=== PATIENT | male | born 1960 | race African-American/Black ===

== ENCOUNTER 2023-03-17 17:12 | Inpatient (IN) | payer OTHER ==
[2023-03-17 18:42] VITALS: BMI 34.8
[2023-03-17] MEDS ORDERED: NALOXONE HCL (KLOXXADO) 8 MG SPRAY NS PRN (20:16)
[2023-03-17] MEDS ORDERED: MAGNESIUM HYDROX 2400MG/30ML ORAL SUSPENSION 30 ML CUP PO PRN (20:16)
[2023-03-17] MEDS ORDERED: MAG HYDROX/AL HYDROX/SIMETH 30 ML UNIT-DOSE CUP PO PRN (20:16)
[2023-03-17] MEDS ORDERED: BISMUTH SUBSALICYLATE 524 MG/30 ML PO PRN (20:16)
[2023-03-17] MEDS ORDERED: ONDANSETRON *ODT* 4 MG TABLET SL PRN (20:16)
[2023-03-17] MEDS ORDERED: guaiFENesin 600 MG TABLET.ER (FP) PO PRN (20:16)
[2023-03-17] MEDS ORDERED: chlordiazePOXIDE HCL 25 MG CAPSULE PO PRN ×2 (20:16→21:44)
[2023-03-17] MEDS ORDERED: BENZONATATE 200 MG CAPSULE PO PRN (20:16)
[2023-03-17] MEDS ORDERED: IBUPROFEN 400 MG TABLET (FP) PO PRN (20:16)
[2023-03-17] MEDS ORDERED: DICYCLOMINE HCL 10 MG CAPSULE PO PRN (20:16)
[2023-03-17] MEDS ORDERED: LOPERAMIDE HCL 2 MG CAPSULE PO PRN (20:16)
[2023-03-17] MEDS ORDERED: BENZOCAINE/MENTHOL (CHLORASEPTIC ) LOZENGE MM PRN (20:16)
[2023-03-17] MEDS ORDERED: NALOXONE HCL 0.4 MG/ML VIAL IM PRN (20:16)
[2023-03-17] MEDS ORDERED: POLYETHYLENE GLYCOL (HEALTHYLAX) 3350 17 GM PACKET PO PRN (20:16)
[2023-03-17] MEDS: THIAMINE HCL 100 MG TABLET (FP) PO SCH (22:56)
[2023-03-17] MEDS: IBUPROFEN 600 MG TABLET (FP) PO PRN (22:56)
[2023-03-17] MEDS: METHOCARBAMOL 500 MG TABLET PO PRN (22:56)
[2023-03-17] MEDS: chlordiazePOXIDE HCL 25 MG CAPSULE PO SCH ×2 (22:57→23:46)
[2023-03-17] MEDS: MELATONIN 5 MG TABLETS PO SCH (23:00)
[2023-03-18] MEDS: chlordiazePOXIDE HCL 25 MG CAPSULE PO SCH ×4 (06:00→23:32)
[2023-03-18] MEDS: IBUPROFEN 600 MG TABLET (FP) PO PRN ×2 (06:46→17:46)
[2023-03-18 10:31] LABS: HEMATOCRIT 36.8 % (35.4-49); HEMOGLOBIN 11.8 GM/dL (11.7-16.9); MCH 28.6 pg (25.7-33.7); MEAN CELL VOLUME 89.2 fl (80-96); MEAN PLT VOLUME 8.9 fl (7.5-11.1); PLATELET COUNT 277 10^3/uL (134-434); RBC 4.12 M/mm3 (4.00-5.60); RDW 13.8 % (11.9-15.9); WHITE BLOOD COUNT 6.2 K/mm3 (4.0-10.0)
[2023-03-18] MEDS: METHOCARBAMOL 500 MG TABLET PO PRN ×2 (10:38→17:51)
[2023-03-18] MEDS: PRENATAL VITAMINS W/ FOLIC ACID TABLET (FP) PO SCH (10:38)
[2023-03-18 11:14] LABS: POTASSIUM 3.9 mmol/L (3.5-5.1)
[2023-03-18 11:16] LABS: CALCIUM 8.2 mg/dL (8.5-10.1)
[2023-03-18 11:17] LABS: ALBUMIN 2.6 g/dl (3.4-5.0); BLOOD UREA NITROGEN 13.3 mg/dL (7-18)
[2023-03-18 11:20] LABS: CREATININE 1.1 mg/dL (0.55-1.3)
[2023-03-18 11:22] LABS: BILIRUBIN,TOTAL 0.5 mg/dL (0.2-1); TOT PROT 6.7 g/dl (6.4-8.2)
[2023-03-18] MEDS: BACITRACIN 0.9 GM PACKET TP SCH (23:30)
[2023-03-18] MEDS: MELATONIN 5 MG TABLETS PO SCH (23:30)
[2023-03-18] MEDS: THIAMINE HCL 100 MG TABLET (FP) PO SCH (23:30)
[2023-03-19] MEDS ORDERED: chlordiazePOXIDE HCL 25 MG CAPSULE PO SCH (05:00)
[2023-03-19] MEDS: chlordiazePOXIDE HCL 25 MG CAPSULE PO SCH ×4 (05:47→22:42)
[2023-03-19] MEDS: METHOCARBAMOL 500 MG TABLET PO PRN ×2 (09:42→20:26)
[2023-03-19] MEDS: BACITRACIN 0.9 GM PACKET TP SCH ×2 (09:42→22:42)
[2023-03-19] MEDS: IBUPROFEN 600 MG TABLET (FP) PO PRN ×2 (09:42→17:23)
[2023-03-19] MEDS: PRENATAL VITAMINS W/ FOLIC ACID TABLET (FP) PO SCH (09:42)
[2023-03-19] MEDS: HYDROCHLOROTHIAZIDE 12.5 MG CAPSULE (FP) PO SCH (12:10)
[2023-03-19] MEDS: ACETAMINOPHEN 325 MG TABLET (FP) PO PRN (20:26)
[2023-03-19] MEDS: THIAMINE HCL 100 MG TABLET (FP) PO SCH (22:42)
[2023-03-19] MEDS: MELATONIN 5 MG TABLETS PO SCH (22:42)
[2023-03-20] MEDS ORDERED: chlordiazePOXIDE HCL 10 MG CAPSULE PO PRN ×2
[2023-03-20] MEDS ORDERED: chlordiazePOXIDE HCL 10 MG CAPSULE PO SCH (05:00)
[2023-03-20] MEDS: chlordiazePOXIDE HCL 10 MG CAPSULE PO SCH ×4 (05:57→22:39)
[2023-03-20] MEDS: IBUPROFEN 600 MG TABLET (FP) PO PRN ×3 (06:04→22:41)
[2023-03-20] MEDS: BACITRACIN 0.9 GM PACKET TP SCH ×3 (10:07→22:48)
[2023-03-20] MEDS: HYDROCHLOROTHIAZIDE 12.5 MG CAPSULE (FP) PO SCH (10:08)
[2023-03-20] MEDS: PRENATAL VITAMINS W/ FOLIC ACID TABLET (FP) PO SCH (10:08)
[2023-03-20] MEDS: METHOCARBAMOL 500 MG TABLET PO PRN ×3 (10:10→22:40)
[2023-03-20] MEDS: hydrOXYzine PAMOATE 25 MG CAPSULE (FP) PO PRN (16:24)
[2023-03-20] MEDS: THIAMINE HCL 100 MG TABLET (FP) PO SCH (22:39)
[2023-03-20] MEDS: MELATONIN 5 MG TABLETS PO SCH (22:39)
[2023-03-21] MEDS ORDERED: chlordiazePOXIDE HCL 10 MG CAPSULE PO SCH ×2 (05:00)
[2023-03-21] MEDS: IBUPROFEN 600 MG TABLET (FP) PO PRN ×2 (06:07→13:55)
[2023-03-21] MEDS: METHOCARBAMOL 500 MG TABLET PO PRN (07:18)
[2023-03-21 09:17] VITALS: RESP 18; TEMP 97.3
[2023-03-21] MEDS: hydrOXYzine PAMOATE 25 MG CAPSULE (FP) PO PRN (09:41)
[2023-03-21] MEDS: BACITRACIN 0.9 GM PACKET TP SCH (09:41)
[2023-03-21] MEDS: PRENATAL VITAMINS W/ FOLIC ACID TABLET (FP) PO SCH (09:41)
[2023-03-21] MEDS: ACETAMINOPHEN 325 MG TABLET (FP) PO PRN (09:41)
[2023-03-21] MEDS ORDERED: HYDROCHLOROTHIAZIDE 25 MG TABLET (FP) PO SCH (10:00)
[2023-03-21 13:15] VITALS: BP 148/88; PULSE 78
[2023-03-22] MEDS ORDERED: chlordiazePOXIDE HCL 10 MG CAPSULE PO ONE ×2 (05:00)
== END 2023-03-21 14:05 | disposition home or self-care (01) | DRG 774 ==
LOC: YASAS 17:12 → Y6N 21:09
PROVIDERS: ADMIT Allergy & Immunology; ATTEND Surgery
PROC: HZ2ZZZZ Detoxification Services for Substance Abuse Treatment (ICD-10-PCS; principal; 2023-03-17)
DX: F10.230 Alcohol dependence with withdrawal, uncomplicated (principal); F14.20 Cocaine dependence, uncomplicated; F12.20 Cannabis dependence, uncomplicated; F17.210 Nicotine dependence, cigarettes, uncomplicated; I10 Essential (primary) hypertension; M19.90 Unspecified osteoarthritis, unspecified site; E66.9 Obesity, unspecified; Z68.31 Body mass index [BMI] 31.0-31.9, adult; Z99.89 Dependence on other enabling machines and devices
CPT/HCPCS: 36415; 80053; 85027; 86780; 87635

== ENCOUNTER 2023-04-23 16:14 | Inpatient (IN) | payer OTHER ==
[2023-04-23 18:33] VITALS: RESP 18; BMI 46.7
[2023-04-23] MEDS ORDERED: BENZONATATE 200 MG CAPSULE PO PRN (18:55)
[2023-04-23] MEDS ORDERED: LOPERAMIDE HCL 2 MG CAPSULE PO PRN (18:55)
[2023-04-23] MEDS ORDERED: guaiFENesin 600 MG TABLET.ER (FP) PO PRN (18:55)
[2023-04-23] MEDS ORDERED: POLYETHYLENE GLYCOL (HEALTHYLAX) 3350 17 GM PACKET PO PRN (18:55)
[2023-04-23] MEDS ORDERED: MAG HYDROX/AL HYDROX/SIMETH 30 ML UNIT-DOSE CUP PO PRN (18:55)
[2023-04-23] MEDS ORDERED: NICOTINE POLACRILEX 2 MG GUM BUC PRN (18:55)
[2023-04-23] MEDS ORDERED: COLLOIDAL OATMEAL 1 BAR EACH TP PRN (18:55)
[2023-04-23] MEDS ORDERED: MAGNESIUM HYDROX 2400MG/30ML ORAL SUSPENSION 30 ML CUP PO PRN (18:55)
[2023-04-23] MEDS ORDERED: BENZOCAINE/MENTHOL (CHLORASEPTIC ) LOZENGE MM PRN (18:55)
[2023-04-23] MEDS: THIAMINE HCL 100 MG TABLET (FP) PO SCH (23:18)
[2023-04-23] MEDS: MELATONIN 5 MG TABLETS PO SCH (23:18)
[2023-04-23] MEDS: ACETAMINOPHEN 325 MG TABLET (FP) PO PRN (23:22)
[2023-04-24] MEDS: ACETAMINOPHEN 325 MG TABLET (FP) PO PRN ×2 (07:07→11:35)
[2023-04-24] MEDS ORDERED: TUBERCULIN PPD 5 TU/0.1ML VIAL ID ONE (08:09)
[2023-04-24] MEDS ORDERED: FUROSEMIDE 40 MG TABLET (FP) PO SCH (10:00)
[2023-04-24] MEDS ORDERED: PRENATAL VITAMINS W/ FOLIC ACID TABLET (FP) PO SCH (10:00)
[2023-04-24] MEDS ORDERED: LOSARTAN POTASSIUM 25 MG TABLET PO SCH (10:00)
[2023-04-24] MEDS: INSULIN SLIDING SCALE (NOVOLOG) 1 VIAL SQ SCH (17:41)
[2023-04-24] MEDS ORDERED: BACITRACIN ZINC 15 GM TUBE TOPICAL OINTMENT TP SCH (22:00)
[2023-04-24] MEDS: MELATONIN 5 MG TABLETS PO SCH (22:22)
[2023-04-24] MEDS: IBUPROFEN 600 MG TABLET (FP) PO PRN (22:22)
[2023-04-24] MEDS: THIAMINE HCL 100 MG TABLET (FP) PO SCH (22:23)
[2023-04-25] MEDS: INSULIN SLIDING SCALE (NOVOLOG) 1 VIAL SQ SCH (07:25)
[2023-04-25] MEDS: IBUPROFEN 600 MG TABLET (FP) PO PRN (07:32)
[2023-04-25 07:41] VITALS: TEMP 97.1
[2023-04-25 09:04] VITALS: BP 118/80; PULSE 68
== END 2023-04-25 08:47 | disposition left against medical advice (07) | DRG 772 ==
LOC: YASAS 16:14 → Y3E 22:43
PROVIDERS: ADMIT Allergy & Immunology; ATTEND Psychiatry & Neurology Pain Medicine
PROC: HZ42ZZZ Group Counseling for Substance Abuse Treatment, Cognitive-Behavioral (ICD-10-PCS; principal; 2023-04-23)
DX: F10.20 Alcohol dependence, uncomplicated (principal); F14.20 Cocaine dependence, uncomplicated; F12.20 Cannabis dependence, uncomplicated; F17.210 Nicotine dependence, cigarettes, uncomplicated; I10 Essential (primary) hypertension; I48.91 Unspecified atrial fibrillation; E11.9 Type 2 diabetes mellitus without complications; L97.921 Non-pressure chronic ulcer of unspecified part of left lower leg limited to breakdown of skin; L97.911 Non-pressure chronic ulcer of unspecified part of right lower leg limited to breakdown of skin; E66.01 Morbid (severe) obesity due to excess calories; Z68.42 Body mass index [BMI] 45.0-49.9, adult; Z99.89 Dependence on other enabling machines and devices; Z28.310 Unvaccinated for COVID-19; Z28.9 Immunization not carried out for unspecified reason; F91.8 Other conduct disorders; Z91.199 Patient's noncompliance with other medical treatment and regimen due to unspecified reason
CPT/HCPCS: 36415; 71045-TC-FY; 80048; 80053; 80061; 80307; 82550; 82553; 82962; 83036; 83735; 84100; 84132; 84439; 84443; 84484; 85025; 85027; 85610; 85730; 87070; 87077; 87186; 87205; 87635; 93005; 93010; 93306-TC; 93971-TC; 97116-GP; 97162-GP; G0378

== ENCOUNTER 2023-06-10 10:59 | Inpatient (IN) | payer OTHER ==
[2023-06-10 11:46] VITALS: BMI 31.4
[2023-06-10] MEDS ORDERED: IBUPROFEN 400 MG TABLET (FP) PO PRN (15:10)
[2023-06-10] MEDS ORDERED: MAGNESIUM HYDROX 2400MG/30ML ORAL SUSPENSION 30 ML CUP PO PRN (15:10)
[2023-06-10] MEDS ORDERED: MAG HYDROX/AL HYDROX/SIMETH 30 ML UNIT-DOSE CUP PO PRN (15:10)
[2023-06-10] MEDS ORDERED: NALOXONE HCL 0.4 MG/ML VIAL IM PRN (15:10)
[2023-06-10] MEDS ORDERED: guaiFENesin 600 MG TABLET.ER (FP) PO PRN (15:10)
[2023-06-10] MEDS ORDERED: BENZOCAINE/MENTHOL (CHLORASEPTIC ) LOZENGE MM PRN (15:10)
[2023-06-10] MEDS ORDERED: BISMUTH SUBSALICYLATE 524 MG/30 ML PO PRN (15:10)
[2023-06-10] MEDS ORDERED: DICYCLOMINE HCL 10 MG CAPSULE PO PRN (15:10)
[2023-06-10] MEDS ORDERED: POLYETHYLENE GLYCOL (HEALTHYLAX) 3350 17 GM PACKET PO PRN (15:10)
[2023-06-10] MEDS ORDERED: ONDANSETRON *ODT* 4 MG TABLET SL PRN (15:10)
[2023-06-10] MEDS ORDERED: NALOXONE HCL (KLOXXADO) 8 MG SPRAY NS PRN (15:10)
[2023-06-10] MEDS ORDERED: BENZONATATE 200 MG CAPSULE PO PRN (15:10)
[2023-06-10] MEDS ORDERED: LOPERAMIDE HCL 2 MG CAPSULE PO PRN (15:10)
[2023-06-10] MEDS ORDERED: chlordiazePOXIDE HCL 25 MG CAPSULE PO PRN (15:10)
[2023-06-10] MEDS ORDERED: IBUPROFEN 600 MG TABLET (FP) PO PRN (16:36)
[2023-06-10] MEDS ORDERED: chlordiazePOXIDE HCL 25 MG CAPSULE ONE (16:45)
[2023-06-10] MEDS ORDERED: IBUPROFEN 600 MG TABLET (FP) PO ONE (16:46)
[2023-06-10] MEDS: chlordiazePOXIDE HCL 25 MG CAPSULE PO SCH ×2 (16:47→22:54)
[2023-06-10] MEDS: IBUPROFEN 600 MG TABLET (FP) PO PRN (16:47)
[2023-06-10] MEDS: MELATONIN 5 MG TABLETS PO SCH (22:53)
[2023-06-10] MEDS: THIAMINE HCL 100 MG TABLET (FP) PO SCH (22:55)
[2023-06-10] MEDS: METHOCARBAMOL 500 MG TABLET PO PRN (22:57)
[2023-06-10] MEDS: TOLNAFTATE 1% CREAM 15 GM TUBE TP SCH (22:59)
[2023-06-11] MEDS: chlordiazePOXIDE HCL 25 MG CAPSULE PO SCH ×4 (05:40→22:56)
[2023-06-11] MEDS: PRENATAL VITAMINS W/ FOLIC ACID TABLET (FP) PO SCH (10:25)
[2023-06-11] MEDS: LOSARTAN POTASSIUM 25 MG TABLET PO SCH (10:25)
[2023-06-11] MEDS: TOLNAFTATE 1% CREAM 15 GM TUBE TP SCH ×2 (10:26→22:57)
[2023-06-11] MEDS: SILVER SULFADIAZINE 1% TOP CREAM 50 GM JAR TP SCH (10:26)
[2023-06-11 13:18] LABS: HEMATOCRIT 35.3 % (35.4-49); HEMOGLOBIN 11.5 GM/dL (11.7-16.9); MCH 29.3 pg (25.7-33.7); MCHC 32.6 g/dl (32.0-35.9); MEAN CELL VOLUME 90.1 fl (80-96); MEAN PLT VOLUME 8.7 fl (7.5-11.1); PLATELET COUNT 272 10^3/uL (134-434); RBC 3.92 M/mm3 (4.00-5.60); RDW 14.5 % (11.9-15.9); WHITE BLOOD COUNT 8.6 K/mm3 (4.0-10.0)
[2023-06-11 13:20] LABS: CHLORIDE 107 mmol/L (98-107); POTASSIUM 4.5 mmol/L (3.5-5.1); SODIUM 143 mmol/L (136-145)
[2023-06-11 13:27] LABS: ALBUMIN 2.4 g/dl (3.4-5.0); ANION GAP 7 mmol/L (4-13); BLOOD UREA NITROGEN 14.2 mg/dL (7-18); CALCIUM 8.7 mg/dL (8.5-10.1); CO2 29 mmol/L (21-32); GLUCOSE,RANDOM 90 mg/dL (74-106)
[2023-06-11 13:30] LABS: SGOT/AST 19 U/L (15-37); SGPT/ALT 22 U/L (13-61)
[2023-06-11 13:32] LABS: BILIRUBIN,TOTAL 0.2 mg/dL (0.2-1)
[2023-06-11 13:33] LABS: ALK PHOS 78 U/L (45-117)
[2023-06-11] MEDS: IBUPROFEN 600 MG TABLET (FP) PO PRN (17:58)
[2023-06-11] MEDS: THIAMINE HCL 100 MG TABLET (FP) PO SCH (22:55)
[2023-06-11] MEDS: MELATONIN 5 MG TABLETS PO SCH (23:02)
[2023-06-12] MEDS: chlordiazePOXIDE HCL 25 MG CAPSULE PO SCH ×4 (07:00→17:33)
[2023-06-12] MEDS: IBUPROFEN 600 MG TABLET (FP) PO PRN ×2 (07:38→22:44)
[2023-06-12] MEDS: PRENATAL VITAMINS W/ FOLIC ACID TABLET (FP) PO SCH (09:58)
[2023-06-12] MEDS: LOSARTAN POTASSIUM 25 MG TABLET PO SCH (09:58)
[2023-06-12] MEDS: SILVER SULFADIAZINE 1% TOP CREAM 50 GM JAR TP SCH (09:59)
[2023-06-12] MEDS: TOLNAFTATE 1% CREAM 15 GM TUBE TP SCH ×2 (10:00→22:45)
[2023-06-12] MEDS: THIAMINE HCL 100 MG TABLET (FP) PO SCH (22:44)
[2023-06-12] MEDS: MELATONIN 5 MG TABLETS PO SCH (22:45)
[2023-06-12] MEDS: METHOCARBAMOL 500 MG TABLET PO PRN (22:45)
[2023-06-13] MEDS ORDERED: chlordiazePOXIDE HCL 10 MG CAPSULE PO PRN
[2023-06-13] MEDS: chlordiazePOXIDE HCL 10 MG CAPSULE PO SCH ×4 (05:42→22:43)
[2023-06-13] MEDS: IBUPROFEN 600 MG TABLET (FP) PO PRN ×2 (09:51→17:31)
[2023-06-13] MEDS: TOLNAFTATE 1% CREAM 15 GM TUBE TP SCH ×2 (10:43→10:51)
[2023-06-13] MEDS: SILVER SULFADIAZINE 1% TOP CREAM 50 GM JAR TP SCH (10:51)
[2023-06-13] MEDS: LOSARTAN POTASSIUM 25 MG TABLET PO SCH (10:51)
[2023-06-13] MEDS: PRENATAL VITAMINS W/ FOLIC ACID TABLET (FP) PO SCH (10:51)
[2023-06-13] MEDS: METHOCARBAMOL 500 MG TABLET PO PRN ×2 (13:55→22:43)
[2023-06-13] MEDS: ACETAMINOPHEN 325 MG TABLET (FP) PO PRN (13:55)
[2023-06-13] MEDS: hydrOXYzine PAMOATE 25 MG CAPSULE (FP) PO PRN (17:31)
[2023-06-13] MEDS: MELATONIN 5 MG TABLETS PO SCH (22:43)
[2023-06-13] MEDS: THIAMINE HCL 100 MG TABLET (FP) PO SCH (22:43)
[2023-06-14] MEDS: chlordiazePOXIDE HCL 10 MG CAPSULE PO SCH ×2 (05:55→17:12)
[2023-06-14] MEDS: METHOCARBAMOL 500 MG TABLET PO PRN ×2 (06:02→15:56)
[2023-06-14] MEDS: IBUPROFEN 600 MG TABLET (FP) PO PRN ×3 (06:02→22:41)
[2023-06-14] MEDS: PRENATAL VITAMINS W/ FOLIC ACID TABLET (FP) PO SCH (09:29)
[2023-06-14] MEDS: LOSARTAN POTASSIUM 25 MG TABLET PO SCH (09:29)
[2023-06-14] MEDS: hydrOXYzine PAMOATE 25 MG CAPSULE (FP) PO PRN ×2 (09:29→22:40)
[2023-06-14] MEDS: TOLNAFTATE 1% CREAM 15 GM TUBE TP SCH ×2 (09:30→22:40)
[2023-06-14] MEDS: SILVER SULFADIAZINE 1% TOP CREAM 50 GM JAR TP SCH (09:30)
[2023-06-14] MEDS: ACETAMINOPHEN 325 MG TABLET (FP) PO PRN (09:31)
[2023-06-14] MEDS: MELATONIN 5 MG TABLETS PO SCH (22:40)
[2023-06-14] MEDS: THIAMINE HCL 100 MG TABLET (FP) PO SCH (22:40)
[2023-06-15] MEDS ORDERED: chlordiazePOXIDE HCL 10 MG CAPSULE PO ONE (05:00)
[2023-06-15 05:42] VITALS: RESP 16
[2023-06-15 09:15] VITALS: BP 152/89; PULSE 73; TEMP 97.9
[2023-06-15] MEDS: PRENATAL VITAMINS W/ FOLIC ACID TABLET (FP) PO SCH (10:36)
[2023-06-15] MEDS: LOSARTAN POTASSIUM 25 MG TABLET PO SCH (10:36)
[2023-06-15] MEDS: SILVER SULFADIAZINE 1% TOP CREAM 50 GM JAR TP SCH (10:37)
[2023-06-15] MEDS: TOLNAFTATE 1% CREAM 15 GM TUBE TP SCH (10:37)
[2023-06-15] MEDS: IBUPROFEN 600 MG TABLET (FP) PO PRN (10:56)
== END 2023-06-15 13:45 | disposition home or self-care (01) | DRG 774 ==
LOC: SUATTDRO 10:59 → YASAS 10:59 → Y6N 15:52
PROVIDERS: ADMIT Allergy & Immunology; ATTEND Surgery
PROC: HZ2ZZZZ Detoxification Services for Substance Abuse Treatment (ICD-10-PCS; principal; 2023-06-10)
DX: F10.20 Alcohol dependence, uncomplicated (principal); F14.10 Cocaine abuse, uncomplicated; F12.20 Cannabis dependence, uncomplicated; F17.210 Nicotine dependence, cigarettes, uncomplicated; L97.519 Non-pressure chronic ulcer of other part of right foot with unspecified severity; L97.919 Non-pressure chronic ulcer of unspecified part of right lower leg with unspecified severity; R60.0 Localized edema; Z99.89 Dependence on other enabling machines and devices
CPT/HCPCS: 36415; 80053; 80307; 85027; 86780; 87635